=== PATIENT | male | born 1985 | race Caucasian/White ===

== ENCOUNTER 2025-02-28 05:07 | Emergency (ER) | payer MEDICAID ==
[~2025-02-28] VITALS: Ht 172.7 cm; Wt 77.3 kg
[2025-02-28 05:11] VITALS: BP 136/82; PULSE 84; RESP 18; TEMP 98.3; O2SAT 100
[2025-02-28] MEDS: ACETAMINOPHEN 500 MG TABLET PO ONE (06:27)
== END 2025-02-28 06:30 | disposition home or self-care (01) ==
LOC: EMS 05:10
DX: M79.671 Pain in right foot (principal); M79.672 Pain in left foot
CPT/HCPCS: 99282; Z7502; Z7610

== ENCOUNTER 2025-03-03 09:25 | Emergency (ER) | payer MEDICAID ==
[~2025-03-03] VITALS: Ht 172.7 cm; Wt 77.3 kg
[2025-03-03 09:34] VITALS: BP 125/84; PULSE 66; RESP 18; TEMP 98.1; O2SAT 100
== END 2025-03-03 13:06 | disposition home or self-care (01) ==
LOC: EMS 09:30
DX: R21 Rash and other nonspecific skin eruption (principal); F17.210 Nicotine dependence, cigarettes, uncomplicated; F12.90 Cannabis use, unspecified, uncomplicated; Z00.00 Encounter for general adult medical examination without abnormal findings
CPT/HCPCS: 99282; Z7502

== ENCOUNTER 2025-04-28 12:11 | Emergency (ER) | payer MEDICAID ==
[~2025-04-28] VITALS: Ht 172.7 cm; Wt 70.5 kg
[2025-04-28 12:35] VITALS: BP 145/92; PULSE 100; RESP 16; TEMP 98; O2SAT 94
[2025-04-28 13:47] LABS: COVID AG,FIA SOURCE NPH
[2025-04-28 14:01] LABS: PLATELET COUNT (AUTO) 238 K/uL (150-450); RED BLOOD CELL COUNT(AUTO) 4.50 MIL/uL (4.50-5.90); RED CELL DISTRIBUTION WIDTH 14.5 % (11.5-14.5); WHITE BLOOD COUNT (AUTO) 13.0 K/uL (4.5-11.0)
[2025-04-28 14:08] LABS: CALCIUM, TOTAL 8.9 mg/dL (8.8-10.5); CREATININE 0.93 mg/dL (0.60-1.30); GLOMERULAR FILTR. RATE CALC > 60 mL/min (>60); GLUCOSE,RANDOM 92 mg/dL (70-110); SODIUM SERUM 133 mmol/L (136-145); UREA NITROGEN, BLOOD 19 mg/dL (7-18)
[2025-04-28 14:13] LABS: SARS-COV2 (COVID) ANTIGEN,FIA Negative (Negative)
[2025-04-28] MEDS: IBUPROFEN 600 MG TABLET PO ONE (21:29)
== END 2025-04-29 02:23 | disposition home or self-care (01) ==
LOC: EMS 12:12
DX: Z00.8 Encounter for other general examination (principal); F17.210 Nicotine dependence, cigarettes, uncomplicated; Z20.822 Contact with and (suspected) exposure to COVID-19
CPT/HCPCS: 99285; 87426; 80048; 85025; 36415; G0480